=== PATIENT | female | born 1995 | race Caucasian/White ===

== ENCOUNTER 2019-04-09 10:40 | Outpatient (CLI) | payer MEDICAID, SELFPAY ==
--- NOTE | 2019-04-09 10:50 | US_ITS ---
WS: [id number] OB ultrasound, 04/09/2019 Clinical Data: LOW LYING PLACENTA W/O HEMORRHAGE Comparison: OB ultrasound, 02/02/2019 Findings: Limited examination showed there was no placenta previa. Placenta was posterior and grade one. The ce rvical length was 5.13 cm and it was closed. There is a normal amount of amniotic fluid. The he art rate was 141 bpm. US/US OB limited [id number] Impression: 1. Single intrauterine in vertex presentation. 2. Posterior placenta with no previa. 3. heart rate 141 beats per minute.
== END 2019-04-09 10:41 | disposition home or self-care (01) ==
PROVIDERS: PCP Family Medicine; Visit Provider Family Medicine
DX: O44.00 Complete placenta previa NOS or without hemorrhage, unspecified trimester (principal)
CPT/HCPCS: 76815

== ENCOUNTER 2019-05-05 10:20 | Outpatient (CLI) | payer MEDICAID, SELFPAY ==
--- NOTE | 2019-05-05 10:31 | US_ITS ---
WS: [id number] LIMITED OBSTETRICAL ULTRASOUND HISTORY: GESTATIONAL DIABETES/FOLLOW UP GROWTH CHECK COMPARISON: 04/09/2019, 02/02/2019 and 12/04/2018 Presentation: Vertex. Cervix: Closed and normal length. Placenta: Posterior, no previa or abruption. Grade: 1 HEART: FHR of 153 BPM. measurements: BPD = 8.4 cm = 33w6d HC = 30.7 cm = 34w2d AC = 30.3 cm = 34w2d FL = 6.6 cm = 34w1d Visually normal amount of amniotic fluid. EFW: 2374 g; 60 %. AGA by ultrasound: 34w1d JUHI by ultrasound: 06/15/2019 US/[place] [id number] IMPRESSION: 1. Single intrauterine gestation of 34 weeks 1 day with an EDC of 06/15/2019. A ppropriate growth since the first trimester ultrasound. 2. No macrosomia or growth asymmetry.
--- NOTE | 2019-06-01 11:38 | ANES.PREANE2 ---
Pre-Anesthetic Assessment Pre-Anesthetic Assessment: Preop Diagnosis: Term , 2 epidurals Proposed Procedure: Labor Epidural for anticipated vaginal delivery, induction for 06/07/19, induced due to epilepsy Exam: Pre-Anes Outpt Exam: alert, oriented x 3, clear to auscultation bilaterally and regular rate & rhythm Airway: Submandibular: WNL Cervical ROM: WNL MP: 1 Metabolic: Metabolic: Morbid obesity Neuropsych: Neuropsych: Seizure Comments: Epilespsy, last seizure grand mal-1y ago Anesthetic Plan: ASA status: 3 Anesthesia: Regional (specify below) Data Anesthesia Cardiac Studies: No Data to Display
== END 2019-05-05 10:21 | disposition home or self-care (01) ==
LOC: US 10:23
PROVIDERS: PCP Family Medicine; Visit Provider Family Medicine
DX: O24.419 Gestational diabetes mellitus in pregnancy, unspecified control (principal); Z3A.34 34 weeks gestation of pregnancy; Z36.9 Encounter for antenatal screening, unspecified
CPT/HCPCS: 76816

== ENCOUNTER 2019-06-01 12:17 | Outpatient (CLI) | payer MEDICAID, SELFPAY ==
--- NOTE | 2019-06-01 12:22 | US_ITS ---
WS: [id number] [place] [id number] REASON FOR EXAM: GESTATIONAL DIABETES/GROWTH CHECCK FINDINGS: Cephalic presentation. Biparietal diameter the head 9.06 cm 36 weeks 5 days gestation Head circumference 33.65 cm 38 weeks 4 days gestation. heart rate 153 bpm. Femoral lengths 7.30 cm 37 weeks 3 days gestation. Profile the fetus shows normal nose and facial features. Posterior placenta grade 2 weight 33 87 g (7 lbs. 8 oz.) this suggests a 41 week 4 day gestation. The fetus is at 37 weeks 6 days gestation due date June 16, 2019. The measurements are consistent with an 80% profile developing fetus. / [place] [id number] IMPRESSION: Interuterine at 37 weeks 6 days gestation with expected date of confi nement June 16, 2019 The fetus weighs 7 lbs. 8 oz. The fetus is 81 percentile development. In regards to pertinent curves.
== END 2019-06-01 12:18 | disposition home or self-care (01) ==
PROVIDERS: PCP Family Medicine; Visit Provider Family Medicine
DX: O24.419 Gestational diabetes mellitus in pregnancy, unspecified control (principal); Z3A.37 37 weeks gestation of pregnancy
CPT/HCPCS: 76816

== ENCOUNTER 2019-06-02 17:29 | Outpatient (CLI) | payer MEDICAID, SELFPAY ==
[2019-06-02] VITALS (7 sets, daily range): BP systolic 119–142; BP diastolic 63–82; PULSE 83–107; RESP 18; TEMP 36.7; BMI 41.1
--- NOTE | 2019-06-02 18:49 | PC.NURSE ---
Patient states she feels her contractions have decreased and are about every 10 minutes.
== END 2019-06-02 19:13 | disposition home or self-care (01) ==
LOC: OPOB 17:48 → OBGYN 19:04 → OPOB 06-03 08:35
PROVIDERS: Absent Provider Family Medicine; PCP Family Medicine; Visit Provider Family Medicine
DX: O26.899 Other specified pregnancy related conditions, unspecified trimester (principal); Z3A.00 Weeks of gestation of pregnancy not specified; R10.9 Unspecified abdominal pain
CPT/HCPCS: 59025; 99211

== ENCOUNTER 2019-06-11 19:55 | Inpatient (IN) | payer OTHER, MEDICAID, SELFPAY ==
[2019-06-11 20:26] VITALS: BP 134/83; PULSE 110
[2019-06-11 20:29] VITALS: BMI 40.7
[2019-06-11 20:56] VITALS: RESP 16; TEMP 36.6
[2019-06-11 21:10] LABS: Glucose Point of Care 146 mg/dL (70-110)
[2019-06-11 21:30] LABS: Basophils % 0.1 %; Eosinophils % 0.4 %; Hematocrit 33.9 % (37.0-47.0); Hemoglobin 11.2 g/dL (11.5-15.3); Lymphocytes # 1.8 10^3/uL (0.8-4.8); Lymphocytes % 20.2 %; Mean Corpuscular Volume 84.8 fL (81-99); Mean Platelet Volume 10.9 fL (7.4-10.4); Monocytes # 0.5 10^3/uL (0.2-0.9); Monocytes % 5.3 %; Neutrophils # 6.6 10^3/uL (1.8-7.7); Neutrophils % 73.3 %; Nucleated Red Blood Cells % 0 %; Platelet Count 243 10^3/cmm (130-400); Red Cell Distribution Width 12.8 % (12.1-15.1)
[2019-06-11 22:15] LABS: Glucose Point of Care 149 mg/dL (70-110)
[2019-06-11] MEDS: miSOPROStol 100 mcg tablet 25 MCG VAGINAL (23:46)
[2019-06-12] VITALS (144 sets, daily range): BP systolic 0–163; BP diastolic 0–93; PULSE 55–130; RESP 16; TEMP 36.6–37.2; O2SAT 91–98
[2019-06-12] MEDS: miSOPROStol 100 mcg tablet 25 MCG VAGINAL (04:30)
[2019-06-12] MEDS: ampicillin 2,000 MG in sodium chloride 0.9% (plus) 50 ML 100 MG IV (05:09)
[2019-06-12 06:52] LABS: Glucose Point of Care 94 mg/dL (70-110)
--- NOTE | 2019-06-12 08:56 | PM.OBGYHP ---
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 She presented at 38-6/7 weeks gestation last evening for cervical ripening and induction of labor secondary to epilepsy. She has not experienced any seizures during this and has been on Keppra throughout her . Her course has also been complicated by gestational diabetes which has been lifestyle controlled, group B strep carrier status a subchorionic hemorrhage earlier in her as well as obesity. Present Details : 3 Para: 2 Date of Last Menstrual Period: 09/12/18 Calculated Date of Delivery: 06/19/19 Gestational Age Based on Last Menstrual Period: 39 Dating criteria OB: LMP confirmed by 2nd trimester US care: good care Ultrasounds: normal mid trimester US and abnormal US findings Abnormal OB US findings: Subchorionic hematoma on first trimester ultrasound Obstetrical complications: gestational diabetes (Lifestyle controlled) and other (Group B strep carrier status, Rh- status, subchorionic hemorrhage first trimester, low-lying placenta (resolved)) Medical complications OB: neurological (Epilepsy) and other (Obesity) Labs Blood type OB HPI: 0 (-) negative Rubella: Immune RPR: Negative GBS: Positive HBsAG: Negative Other Lab Information: INITIAL LABS: Blood Type: O- D (Rh) Type: Negative Antibody Screen: Positive but too weak to titer (patient had received RhoGam secondary to her first trimester bleed) HCT/HBG: Initially 12.9/37.2 Pap Test: Normal Rubella: Immune VDRL: Nonreactive Urine Culture/Screen: Lactobacillus species HBsAg: Negative HIV Counseling/Testing: Negative Influenza Shot: [] Hepatitis C: Negative OPTIONAL LABS: Chlamydia: Negative GC: Negative Varicella Titer: Immune 8-18 WEEK LABS: MSAFP/Multiple Markers: Negative 24-30 WEEK LABS: HCT/HGB: 12.0 Diabetes Screen: 187 3 hour GTT (if screen abnormal): Fasting of 105, 1 hour 221, 2-hour 171, 3-hour 142 D (Rh) Antibody Screen: [] Tdap: Received in our office 32-36 WEEK LABS: Group B Strep (35-37 weeks): Positive L&D/Induction Specific History Indication for induction OB: medical complication (Epilepsy) Planned induction method: per misoprostol protocol Review of Systems Const: Denies: fever : Denies: vaginal bleeding, vaginal discharge or pelvic pain Neuro: Denies: headache or seizure-like activity Medications/Allergies Allergies Allergy/AdvReac Type Severity Reaction Status Date / Time No Known Allergies Allergy Verified 06/12/19 09:20 COUNT INCLUDES THE [facility] 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 ATTACHER Medical History (Updated 06/12/19 @ 10:18 by Jesusita Vivas MD) Anemia Anxiety Depression Seizure disorder Surgical History (Updated 06/12/19 @ 09:33 by Jesusita Vivas MD) History of open reduction and internal fixation (ORIF) procedure Left arm Family History (Updated 06/12/19 @ 09:45 by Jesusita Vivas MD) Mother Psychiatric illness Anxiety and depression Father Cancer colon Grandfather Diabetes Social History (Updated 06/12/19 @ 09:47 by Jesusita Vivas MD) Smoking and tobacco status: never smoked Second hand smoke exposure: No Alcohol intake: never Substance/Drug Use: never Caregiver/support person: Yes Lives independently: Yes Household members: spouse and children Marital status: Number of children: 2 Number of grandchildren: 0 Highest education level completed: Associate Degree: Academic Program Current occupational status: employed 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 Date GA/Weeks Outcome Route Wt Inf Gender Labor Lgth Comp. Anesthesia Location 11/30/13 39 live - full term Vaginal 7 lb Male [facility] 11/10/17 39 live - full term Vaginal 7 lb Female [facility] Delivery Date: 11/30/13 On 06/12/19 @ 09:49 Jesusita Vivas Induction of labor Delivery Date: 11/10/17 On 06/12/19 @ 09:50 Jesusita Vivas Induction of labor Other Female Reproductive History Hx Age of Menarche: 11 Duration of menses: 3-5 days Date of Last Menstrual Period: 09/12/18 Cycle Length: 28 days Menstrual flow: normal/abnormal: normal Sexual History Are you sexually active?: Yes Hx Sexually Transmitted Diseases: No Have you ever tested positive for HIV?: No Vitals/I&O/Wt Last Vital Signs Temp 98.0 F 06/12/19 07:52 Pulse 80 06/12/19 08:55 Resp 16 06/12/19 02:45 BP 139/82 06/12/19 08:55 06/11/19 06/12/19 06/12/19 22:59 06:59 14:59 Intake Total 50 / 50 Balance 50 / 50 Weight last 48 hrs Weight 245 lb Physical Exam Narrative: EXAM NARRATIVE: heart tones have a baseline in the 140s with moderate variability, accelerations and there has been a variable deceleration. Contractions are every 3 to 6 minutes and increasing in frequency and intensity. Const: COMMON NORMALS: no apparent distress, oriented x3, healthy appearing, alert and well nourished : MANUAL OB EXAM: dilated 1 cm, effaced 0%, station high and other (Vertex) Neuro: COMMON NORMALS: oriented x3, CN's II-XII intact bilaterally, moves all extremities and no focal motor deficits SENSORIUM/ORIENTATION: Yes alert Psych: COMMON NORMALS: mental status grossly normal, cooperative, affect normal and speech normal SPEECH: Yes normal speech Data : 06/11/19 20:40 A&P Assessment and plan (1) 39 weeks gestation of : Status: Acute Code(s): Z3A.39 - 39 weeks gestation of (2) Encounter for induction of labor: Last evening Cytotec was placed after an initial period of monitoring secondary to a mild tachycardia noted in the heart tones upon patient's presentation to the labor room. Patient then received a second dose of Cytotec in the senior care manager hours. She went from 1 cm dilated thick very high and posterior to now 3 cm dilated, 50% effaced and -3 station. At this point after she had had breakfast and was placed on the monitor again we will begin Pitocin per the high-dose protocol. She would like an epidural when she is able to have 1. Status: Acute Code(s): Z34.90 - Encounter for supervision of normal , unspecified, unspecified trimester (3) Epilepsy complicating : She is remained seizure-free throughout this and will continue to take her Keppra during this hospitalization. She is followed by a neurologist who recommended the 39-week induction of labor. Status: Acute Qualifiers: Trimester: unspecified trimester Qualified Code(s): O99.350 - Diseases of the nervous system complicating , unspecified trimester; G40.909 - Epilepsy, unspecified, not intractable, without status epilepticus Code(s): O99.350 - Diseases of the nervous system complicating , unspecified trimester; G40.909 - Epilepsy, unspecified, not intractable, without status epilepticus (4) Gestational diabetes mellitus (GDM) affecting : Patient's bedside blood glucose last evening was in the 140s, and this was done a few hours after she had eaten supper with some ice cream afterwards. We then checked it again a few hours later, and it was still in the 140s, actually higher by a few points than it was with the initial reading. Therefore she was given 2 units of Humalog. Her blood glucose this morning was 90s. We will monitor her blood glucose every 4 hours with a goal of having it less than 120. Status: Acute Code(s): O24.419 - Gestational diabetes mellitus in , unspecified control (5) Group B Streptococcus carrier state affecting : We have begun the group B strep protocol with a goal of having 2 doses at least 4 hours prior to delivery. Status: Acute Code(s): O99.820 - Streptococcus B carrier state complicating (6) Rh negative status during : Patient received RhoGam late in the first trimester secondary to a subchorionic hemorrhage sustained in the first trimester and then received it again at the typical 26 to 28-week paul. She had a week positive antibody screen on her first OB visit. We will check that lab again today, as it was thought to be positive secondary to her RhoGam administration late first trimester. Status: Acute Qualifiers: Trimester: unspecified trimester Qualified Code(s): O26.899 - Other specified related conditions, unspecified trimester; Z67.91 - Unspecified blood type, Rh negative Code(s): O26.899 - Other specified related conditions, unspecified trimester; Z67.91 - Unspecified blood type, Rh negative (7) Obesity affecting : She has gained approximately 20 to 25 pounds during this . Status: Acute Qualifiers: Trimester: unspecified trimester Qualified Code(s): O99.210 - Obesity complicating , unspecified trimester Code(s): O99.210 - Obesity complicating , unspecified trimester (8) Low lying placenta nos or without hemorrhage, second trimester: This was shown to be resolved during a third trimester ultrasound. Status: Resolved Code(s): O44.42 - Low lying placenta NOS or without hemorrhage, second trimester (9) Subchorionic hemorrhage in first trimester: Patient had a bleed late in her first trimester and received RhoGam. Status: Resolved Qualifiers: Fetus number: single or unspecified fetus Qualified Code(s): O41.8X10 - Other specified disorders of amniotic fluid and membranes, first trimester, not applicable or unspecified; O46.8X1 - Other antepartum hemorrhage, first trimester Code(s): O41.8X10 - Other specified disorders of amniotic fluid and membranes, first trimester, not applicable or unspecified; O46.8X1 - Other antepartum hemorrhage, first trimester Attestations Medical Necessity Statement*: As patient is being induced secondary to a medical complication she will require continued inpatient care. Coding Level of Care Code Acute Direct Support Specialist for Chg Fwd Diagnoses 39 weeks gestation of Z3A.39 Encounter for induction of labor Z34.90 Epilepsy complicating O99.350; G40.909 Trimester: unspecified trimester Gestational diabetes mellitus (GDM) affecting O24.419 Group B Streptococcus carrier state affecting O99.820 Rh negative status during O26.899; Z67.91 Trimester: unspecified trimester Obesity affecting O99.210 Trimester: unspecified trimester Low lying placenta nos or without hemorrhage, second trimester O44.42 Subchorionic hemorrhage in first trimester O41.8X10; O46.8X1 Fetus number: single or unspecified fetus
[2019-06-12] MEDS: ampicillin 1,000 MG in sodium chloride 0.9% (plus) 50 ML 100 MG IV ×3 (09:10→17:38)
[2019-06-12] MEDS: lactated ringers 1,000 ML 125 ML (09:11)
[2019-06-12] MEDS: oxytocin 30 UNIT/500 ML BAG IV (09:13)
--- NOTE | 2019-06-12 10:00 | PC.NURSE ---
Patient requesting epidural at this time.
[2019-06-12] MEDS: lactated ringers 1,000 ML 999 ML IV (10:23)
--- NOTE | 2019-06-12 11:27 | P.ANESASSM_ITS ---
Pre-Anesthetic Assessment Pre-Anesthetic Assessment: Height/Weight: Height 1.65 m Weight 111.13 kg Temp Pulse Resp BP Pulse Ox 98.3 F 84 16 133/77 98 06/12/19 10:47 06/12/19 11:25 06/12/19 02:45 06/12/19 11:25 06/12/19 11:17 Preop Diagnosis: Term , 2 epidurals Proposed Procedure: Lumbar Epidural Was Beta Riya taken within 24 hours: N/A Social: Social History: No alcohol and No tobacco Exam: Pre-Anes Outpt Exam: alert, oriented x 3 and clear to auscultation bilaterally Airway: Submandibular: WNL Cervical ROM: WNL MP: 3 Additional comments: poor History/ROS: No significant history except as noted and No significant complaints Pulmonary: Pulmonary: None reported CV/HEM: CV/HEM: None reported : : None reported Hepatic: Hepatic: None reported GI: GI: None reported Metabolic: Metabolic: DM Comments: gestational Neuropsych: Neuropsych: Seizure (hx epilepsy. Last seizure 1 yr ago. on Keppra) Anesthetic Plan: ASA status: 2 Anesthesia: Regional (specify below) (Epidural) Meds/Allergies Current Medications: Current Medications Generic Name Dose Route Start Last Admin Trade Name Freq PRN Reason Stop Dose Admin Ampicillin Sodium 1,000 mg/ 50 mls @ 100 mls/ hr 06/12/19 08:58 06/12/19 09:10 Sodium Chloride IV 100 mls/hr Q4H DAVID Administration Protocol Ampicillin Sodium 2,000 mg/ 50 mls @ 100 mls/ hr 06/12/19 05:00 06/12/19 07:00 Sodium Chloride IV Infused ONCE DAVID Infusion Protocol Ropivacaine 200 mg in 100 mls @ 6 mls/hr 06/12/19 06:00 06/12/19 11:14 Naropin Premix EPIDURAL 13 mls/hr .[id number] DAVID Administration Oxytocin 30 unit in 500 ml s @ 1 mls/hr 06/12/19 09:00 06/12/19 09:13 Pitocin IV 1 milliunit/min .Q24H DAVID 1 mls/hr Administration Protocol 1 MILLIUNIT/MIN PFSH Anesthesia PFSH: Medical History (Updated 06/12/19 @ 10:18 by Jesusita Vivas MD) Anemia Anxiety Depression Seizure disorder Surgical History (Updated 06/12/19 @ 09:33 by Jesusita Vivas MD) History of open reduction and internal fixation (ORIF) procedure Left arm Family History (Updated 06/12/19 @ 09:45 by Jesusita Vivas MD) Mother Psychiatric illness Anxiety and depression Father Cancer colon Grandfather Diabetes Social History (Updated 06/12/19 @ 09:47 by Jesusita Vivas MD) Smoking and tobacco status: never smoked Second hand smoke exposure: No Alcohol intake: never Substance/Drug Use: never Caregiver/support person: Yes Lives independently: Yes Household members: spouse and children Marital status: Number of children: 2 Number of grandchildren: 0 Highest education level completed: Associate Degree: Academic Program Current occupational status: employed 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 History of recent travel: No Sexually active: Yes Special sarabjit needs: No Female Reproductive History: Date of last menstrual period: 09/12/18 : 3 Data Anesthesia CBC & Chem 7: 06/11/19 20:40 Other Labs: Laboratory Results - last 48 hr 06/11/19 06/11/19 06/11/19 20:40 20:40 21:08 WBC 9.0 RBC 4.00 L Hgb 11.2 L Hct 33.9 L MCV 84.8 MCH 28.0 MCHC 33.0 RDW 12.8 Plt Count 243 MPV 10.9 H Neut % (Auto) 73.3 Lymph % (Auto) 20.2 [place] % (Auto) 5.3 Eos % (Auto) 0.4 Baso % (Auto) 0.1 Neut # (Auto) 6.6 Lymph # (Auto) 1.8 [place] # (Auto) 0.5 Eos # (Auto) 0.0 Baso # (Auto) 0.0 Nucleated RBC % (auto) 0 Nucleated RBCs # 0.0 POC Glucose 146 Blood Type O Negative Rho(D) Type Negaive Antibody Screen Negative 06/11/19 06/12/19 22:12 06:46 WBC RBC Hgb Hct MCV MCH MCHC RDW Plt Count MPV Neut % (Auto) Lymph % (Auto) [place] % (Auto) Eos % (Auto) Baso % (Auto) Neut # (Auto) Lymph # (Auto) [place] # (Auto) Eos # (Auto) Baso # (Auto) Nucleated RBC % (auto) Nucleated RBCs # POC Glucose 149 94 Blood Type Rho(D) Type Antibody Screen Cardiac Studies: No Data to Display Anesthesia Procedures Epidural: Time Out Performed: Yes Consents Signed: Procedure Consent Consent: from patient, risks and benefits reviewed and patient agrees to proceed Lumbar Level: L3-L4 Epidural position: sitting Epidural procedure: sterile prep of area, 1% lidocaine to numb the area (5), 18 g needle, negative for paresthesia passed, neg for paresthesia, test dose given, 1.5% xylocaine 1:200k epi (5), 0.2% Ropivacaine bolus ml (8), placed PCEA (5cc q15min x 3), no systemic response, sterile dressing applied, L.U.D. no apparent complications and 0.2% Ropiavacaine @ mls/hr (12) Additional Comments: Called to OB for epidural placement, pt evaluated and assessed for placement and explained procedure. Labs reviewed. Pt agrees to proceed. first attempt at l4-5 and blood returned in catheter. moved up 1 space and put in skin local and epidural placed to 5cm in space and tolerated well. Bolused over 7 min and VSS throughout per nursing chart. Last BP 125/79. Pain much improved.
[2019-06-12] MEDS: dextrose 5%-lactated ringers 1,000 ML 125 ML IV ×2 (12:45→19:55)
[2019-06-12 12:54] LABS: Glucose Point of Care 89 mg/dL (70-110)
[2019-06-12] MEDS: ondansetron 2 mg/ML SDV 2 mL 4 MG IVP ×2 (13:35→20:42)
[2019-06-12 13:48] LABS: Glucose Point of Care 111 mg/dL (70-110)
--- NOTE | 2019-06-12 16:09 | P.PN_ITS ---
ARCHERY EQUIPMENT REPAIRER Subjective Subjective: Interval history: Patient is comfortable with her epidural and was last checked approximately 2 hours ago and found to be 3-4 centimeters dilated, 50% effaced high and still ballotable. She has been alexei regularly. She had an episode earlier during which she said she felt nauseous and was hypotensive. Her blood sugar was 111. Her symptoms resolved and she became normotensive with maternal position shift to her left side. Labor: Pain Control: epidural Dilation (cm): 4 Effacement (%): 75 Station: -2 Amniotic Membrane Status: Ruptured Monitor Mode: External Contraction Pattern: Regular Contraction Intensity: Strong/Firm Status: Category l Vitals/I&O/Wt Last Vital Signs Temp 98.8 F 06/12/19 15:56 Pulse 85 06/12/19 16:03 Resp 16 06/12/19 02:45 BP 133/72 06/12/19 16:03 Pulse Ox 98 06/12/19 11:17 06/12/19 06/12/19 06/12/19 06:59 14:59 22:59 Intake Total 2776.451 / 2776.451 27.50 / 2803.951 Balance 2776.451 / 2776.451 27.50 / 2803.951 Weight last 48 hrs Weight 245 lb Physical Exam Urinary Catheter Management^: Roper: Cath Placed During This Visit: yes Urinary Catheter Date of Insertion: 06/12/19 Urinary Catheter Time of Insertion: 11:35 Data : 06/11/19 20:40 A&P Additional A&P Information Amniotomy was performed and resulted in a small amount of clear fluid without odor. Patient has had 3 doses of her antibiotics thus far in the group B strep protocol. Her Pitocin is at 19 milliunits/min, and she is alexei every 2 to 4 minutes and strong. Baby maintains a category 1 tracing. Attestations Medical Necessity Statement*: As patient has not yet delivered she will cont inue to need inpatient hospitalization. Coding Level of Care Code Acute Field Training Manager for Tatum Baird
[2019-06-12 17:52] LABS: Glucose Point of Care 81 mg/dL (70-110)
[2019-06-12] MEDS: miSOPROStol 200 mcg Tablet 800 MCG PR (20:20)
[2019-06-12] MEDS: methylergonovine 0.2 mg/mL INJ 1 mL IM (20:24)
--- NOTE | 2019-06-12 20:59 | PM.DELIVERY ---
 Delivery Note: Date of delivery: June 12, 2019 Pre-delivery diagnoses: 39 weeks gestation of Encounter for induction of labor, Cytotec and Pitocin Epilepsy complicating Gestational diabetes affecting Group B strep carrier state affecting Rh- status during Obesity affecting Post-delivery diagnoses: Spontaneous vaginal delivery of a viable female infant Intact perineum hemorrhage secondary to uterine atony Op report anesthesia: Epidural Delivering Physician: Dr. Vivas Estimated blood loss (mL): 1,500 Pre-Delivery Course: Patient arrived last evening at 38-6/7 weeks gestation for cervical ripening and induction of labor secondary to epilepsy. She began with Cytotec last evening and had a second dose placed in the early childhood education coordinator hours. She began at 1 cm dilated thick high and posterior and this morning after the second dose of Cytotec was 2 to 3 cm dilated, 50% effaced still high and posterior. She was not alexei very frequently and actually stated that she had not experienced very many contractions at all. She ate breakfast at that time and then at a little after 9 AM we began Pitocin. She opted for an epidural in the early afternoon, received it and became comfortable. At that time she was 3 to 4 cm dilated, 50% effaced and -3 station. She was then checked at 1600 and found to be 4 cm dilated, 75% effaced and -2 station, and at 1604 amniotomy was performed and was productive of a small amount of clear fluid without odor. By that time she had already received 3 doses of antibiotics per the group B strep protocol. She was found to be 4 to 5 cm dilated at about 1800 and then at 1948 was completely dilated and +2 station. Delivery: We began the active portion of the second stage of her labor at 2007. After 1 contractions worth of pushes she delivered a viable female at 2009. Head was straight OA. Bulb suctioning was done upon delivery of the baby's head. Nuchal cord x1 was easily manually reduced on the perineum. Bulb suctioning was then repeated upon delivery of baby's body. Baby had a strong cry. She was placed on maternal abdomen while cord was clamped by myself, cut by the father the baby and cord blood obtained. Gentle traction was placed on the placenta, and intravenous Pitocin was begun in routine doses. The placenta delivered intact at 2017 and appeared normal. Uterine exploration revealed clots which were easily manually extracted. The uterus initially felt firm and perineum and cervix were inspected and found to be intact. Just after I had removed my gown and gloves and was walking over toward the warmer to evaluate the baby, I noted a gush of blood from patient's perineal area. I quickly donned a pair of sterile gloves and performed another uterine exploration to find a large clot in the uterus and the uterus boggy, particularly the lower uterine segment. I manually extracted the clot and called for 800 mcg of Cytotec which I then gave rectally. I called for type crossmatch and hold of 4 units of blood. We then followed that with a second IV access, however, 1 of her IVs infiltrated and we were unable to resume it. However, we still had one IV line. Methergine was then given at 2023 IM, and tranexamic acid followed. 1 of the nurses was doing external fundal massage as I was doing it internally. The lower uterine segment remained somewhat boggy. At that point I called for backup, and we gave Hemabate. Her bleeding slowed tremendously, and we reverted to intermittent fundal checks which continually revealed a firm uterus. Dr. Cordon arrived, and I asked him to double check to make sure that there were no upper vaginal or cervical lacerations as I had found none prior. He agreed with the assessment of uterine atony and advised me to continue her medications. Post-Delivery Status: I estimated the blood loss of 1500 mL. Mother was responsive the entire time and had some nausea and then vomited once. She said that she felt better afterwards. She was not hypotensive nor tachycardic. Baby's Apgars were 8 at 1 minute and 9 at 5 minutes, and she weighed 7 pounds 12 ounces/3525g. A&P Assessment and plan (1) 39 weeks gestation of : Status: Acute Code(s): Z3A.39 - 39 weeks gestation of (2) Encounter for induction of labor: Status: Acute Code(s): Z34.90 - Encounter for supervision of normal , unspecified, unspecified trimester (3) Epilepsy complicating : Status: Acute Qualifiers: Trimester: unspecified trimester Qualified Code(s): O99.350 - Diseases of the nervous system complicating , unspecified trimester; G40.909 - Epilepsy, unspecified, not intractable, without status epilepticus Code(s): O99.350 - Diseases of the nervous system complicating , unspecified trimester; G40.909 - Epilepsy, unspecified, not intractable, without status epilepticus (4) Gestational diabetes mellitus (GDM) affecting : Status: Acute Code(s): O24.419 - Gestational diabetes mellitus in , unspecified control (5) Group B Streptococcus carrier state affecting : Status: Acute Code(s): O99.820 - Streptococcus B carrier state complicating (6) Rh negative status during : Status: Acute Qualifiers: Trimester: unspecified trimester Qualified Code(s): O26.899 - Other specified related conditions, unspecified trimester; Z67.91 - Unspecified blood type, Rh negative Code(s): O26.899 - Other specified related conditions, unspecified trimester; Z67.91 - Unspecified blood type, Rh negative (7) Obesity affecting : Status: Acute Qualifiers: Trimester: unspecified trimester Qualified Code(s): O99.210 - Obesity complicating , unspecified trimester Code(s): O99.210 - Obesity complicating , unspecified trimester (8) Low lying placenta nos or without hemorrhage, second trimester: Status: Resolved Code(s): O44.42 - Low lying placenta NOS or without hemorrhage, second trimester (9) Subchorionic hemorrhage in first trimester: Status: Resolved Qualifiers: Fetus number: single or unspecified fetus Qualified Code(s): O41.8X10 - Other specified disorders of amniotic fluid and membranes, first trimester, not applicable or unspecified; O46.8X1 - Other antepartum hemorrhage, first trimester Code(s): O41.8X10 - Other specified disorders of amniotic fluid and membranes, first trimester, not applicable or unspecified; O46.8X1 - Other antepartum hemorrhage, first trimester (10) Normal spontaneous vaginal delivery: Status: Acute Code(s): O80 - Encounter for full-term uncomplicated delivery (11) Intact perineum: Status: Acute (12) atony of uterus with hemorrhage: She is on her second bag of intravenous Pitocin, and we will continue with frequent fundal checks and will check her hemoglobin now and in 4 hours and then the routine 12-hour paul and as needed after that. Status: Acute Code(s): O72.1 - Other immediate hemorrhage Coding Level of Care Code Acute Cathodic Protection Technician for Chg Fwd Diagnoses 39 weeks gestation of Z3A.39 Encounter for induction of labor Z34.90 Epilepsy complicating O99.350; G40.909 Trimester: unspecified trimester Gestational diabetes mellitus (GDM) affecting O24.419 Group B Streptococcus carrier state affecting O99.820 Rh negative status during O26.899; Z67.91 Trimester: unspecified trimester Obesity affecting O99.210 Trimester: unspecified trimester Low lying placenta nos or without hemorrhage, second trimester O44.42 Subchorionic hemorrhage in first trimester O41.8X10; O46.8X1 Fetus number: single or unspecified fetus Normal spontaneous vaginal delivery O80 Intact perineum atony of uterus with hemorrhage O72.1
[2019-06-12] MEDS: levETIRAcetam 500 mg Tablet 2000 MG PO (21:34)
[2019-06-12] MEDS: HYDROcodone-acetaminophen 5-325 mg Tablet PO (22:56)
[2019-06-12 23:02] LABS: Hemoglobin 11.2 g/dL (11.5-15.3)
[2019-06-13] VITALS (8 sets, daily range): BP systolic 97–118; BP diastolic 56–79; PULSE 56–91; RESP 16–18; TEMP 36.4–36.7; O2SAT 94–100
[2019-06-13 00:19] LABS: Glucose Point of Care 92 mg/dL (70-110)
[2019-06-13 00:19] LABS: Glucose Point of Care 89 mg/dL (70-110)
[2019-06-13] MEDS: carboprost tromethamine 250 mcg/mL Amp IM (00:49)
[2019-06-13] MEDS: docusate sodium 100 mg Capsule PO ×2 (08:15→17:47)
[2019-06-13] MEDS: prenatal vitamin Capsule 1 CAP PO (08:15)
[2019-06-13] MEDS: levETIRAcetam 500 mg Tablet 2000 MG PO ×2 (08:16→20:06)
[2019-06-13] MEDS: ferrous sulfate EC 325 mg Tablet PO (08:16)
[2019-06-13 09:05] LABS: Hematocrit 28.1 % (37.0-47.0); Hemoglobin 8.9 g/dL (11.5-15.3); Mean Corpuscular HGB Conc 31.7 g/dL (30.0-36.0); Mean Corpuscular Hemoglobin 28.3 pg (28.0-34.0); Mean Corpuscular Volume 89.2 fL (81-99); Mean Platelet Volume 10.6 fL (7.4-10.4); Platelet Count 168 10^3/cmm (130-400); Red Blood Count 3.15 10^6/uL (4.1-5.3); Red Cell Distribution Width 13.2 % (12.1-15.1); White Blood Count 10.7 10^3/uL (4.0-10.0)
--- NOTE | 2019-06-13 11:56 | P.PN_ITS ---
CHECK PROCESSOR Subjective Subjective: Interval history: Patient states that she has mostly had cramping with breast-feeding, and acetaminophen has been helping. She states that her bleeding is minimal. Post /CS: Patient comments OB post-: no complaints, pain well controlled and tolerating diet baby status: doing well and nursing well [place] feeding status: exclusively breast feeding Vitals/I&O/Wt Last Vital Signs Temp 98.1 F 06/13/19 10:00 Pulse 85 06/13/19 10:00 Resp 16 06/13/19 10:00 BP 98/56 06/13/19 10:00 Pulse Ox 97 06/13/19 10:00 06/12/19 06/13/19 06/13/19 22:59 06:59 14:59 Intake Total 558.083 / 3334.534 385.417 / 3719.951 Output Total 600 / 600 1850 / 2450 900 / 900 Balance -41.917 / 2734.534 -1464.583 / 1269.951 -900 / -900 Weight last 48 hrs Weight 245 lb Physical Exam Const: COMMON NORMALS: no apparent distress, oriented x3, no limitations, healthy appearing and alert Neck/C-Spine: COMMON NORMALS: no JVD Resp: COMMON NORMALS: normal respiratory effort and clear to auscultation bilaterally AUSCULTATION: clear to auscultation bilaterally Cardio: COMMON NORMALS: no JVD, regular rate, regular rhythm, S1 normal heart sound, S2 normal heart sound, no gallops, no clicks, no murmurs, no rub and peripheral pulses 2+ throughout RATE: regular rate RHYTHM: regular rhythm HEART SOUNDS: S1 normal and S2 normal PERIPHERAL PULSES: pulses 2+ throughout : UTERUS PALPATION: Yes other OB (Fundus firm and at least 3 fingerbreadths below the umbilicus) Extremity: COMMON NORMALS: no pedal edema Neuro: COMMON NORMALS: oriented x3 SENSORIUM/ORIENTATION: Yes alert Psych: COMMON NORMALS: mental status grossly normal, thought process normal, cooperative, affect normal, speech normal and activity/motor behavior normal SPEECH: Yes normal speech THOUGHT PROCESS: normal thought process Urinary Catheter Management^: Roper: Cath Placed During This Visit: yes Reason for Continuing Indwelling Catheter: Other Urinary Catheter Date of Insertion: 06/12/19 Urinary Catheter Time of Insertion: 11:35 Data : 06/13/19 08:40 A&P Assessment and plan (1) Normal spontaneous vaginal delivery: Continue routine orders Status: Acute Code(s): O80 - Encounter for full-term uncomplicated delivery (2) Intact perineum: Status: Acute (3) atony of uterus with hemorrhage: Status: Resolved Code(s): O72.1 - Other immediate hemorrhage (4) Rh negative status during : Baby was O-, NILSA negative thus RhoGam was not needed for mother Status: Acute Qualifiers: Trimester: unspecified trimester Qualified Code(s): O26.899 - Other specified related conditions, unspecified trimester; Z67.91 - Unspecified blood type, Rh negative Code(s): O26.899 - Other specified related conditions, unspecified trimester; Z67.91 - Unspecified blood type, Rh negative (5) anemia: Continue with iron Status: Acute Code(s): O90.81 - Anemia of the puerperium Attestations Medical Necessity Statement*: As mother delivered last evening and sustained a hemorrhage which dropped her hemoglobin nearly 3 points, and she has epilepsy as well as baby is being kept overnight for observation given given mom's GBS carrier status, we will plan on discharge tomorrow morning. Time Spent in Patient Care: 16 - 35 minutes Coding Level of Care Code Acute Poultry Farm Manager for Chg Fwd Diagnoses Normal spontaneous vaginal delivery O80 Intact perineum atony of uterus with hemorrhage O72.1 Rh negative status during O26.899; Z67.91 Trimester: unspecified trimester anemia O90.81
[2019-06-13] MEDS: HYDROcodone-acetaminophen 5-325 mg Tablet PO (15:27)
--- NOTE | 2019-06-13 20:13 | PC.NURSE ---
Scheduled med given
--- NOTE | 2019-06-13 22:17 | PC.NURSE ---
Room set up for seizure precautions
[2019-06-14 04:25] VITALS: BP 106/67; PULSE 64; RESP 16; TEMP 36.5; O2SAT 96
--- NOTE | 2019-06-14 07:44 | PM.OBGYDC ---
Discharge Providers ABRASIVES SALES REPRESENTATIVE Date of Admission: 06/12/19 03:50 Date of Discharge: 06/14/19 Attending Provider at Admission: Jesusita Vivas MD Attending Provider at Discharge: Jesusita Vivas MD Primary Care Provider: Jesusita Vivas MD Diagnoses at Discharge Discharge Diagnosis (1) Normal spontaneous vaginal delivery: Status: Acute (2) Intact perineum: Status: Acute (3) atony of uterus with hemorrhage: Status: Resolved (4) Rh negative status during : Status: Acute Qualifiers: Trimester: unspecified trimester Qualified Code(s): O26.899 - Other specified related conditions, unspecified trimester; Z67.91 - Unspecified blood type, Rh negative (5) anemia: Status: Acute Reason for Visit Reason for Visit: Reason For Visit: induction Hospital Course Hospital Course: Patient arrived the evening of 06/11/2019 for cervical ripening and induction of labor. She received 2 doses of Cytotec throughout the evening of 06/10 and truck driver teamster hours of 06/11 and went from 1 cm dilated, thick posterior and high to 3 cm dilated, 50% effaced and -3 station. At that time we began Pitocin for more augmentation than anything else as baby's head was still ballotable and amniotomy was not an option at the time. Patient had also begun antibiotics per the group B strep protocol. She continued to contract and required 20 milliunits/min of the Pitocin to obtain an adequate labor pattern for dilation. She opted for an epidural, received it and became comfortable. Approximately 4:00 that afternoon we ruptured membranes which was productive of a small amount of clear fluid. 4 hours later patient delivered a viable female weighing 7 pounds 12 ounces. She sustained a hemorrhage secondary to uterine atony from which her hemoglobin went from the mid 11's to 8.9. Discharge Summary: day 1 she was feeling good with minimum bleeding or cramping except the cramping during breast-feeding. She has been afebrile and has not had any seizures. day 2 she feels even better. She is planning IUD for control . Information Peripartum Data: Delivery Method: Vaginal Laceration description: None Episiotomy description: None complications: uterine atony Physical Exam Const: COMMON NORMALS: no apparent distress, oriented x3, no limitations, healthy appearing, alert and well nourished Neck/C-Spine: COMMON NORMALS: no JVD Resp: COMMON NORMALS: normal respiratory effort and clear to auscultation bilaterally AUSCULTATION: clear to auscultation bilaterally Cardio: COMMON NORMALS: no JVD, regular rate, regular rhythm, S1 normal heart sound, S2 normal heart sound, no gallops, no clicks, no murmurs, no rub and peripheral pulses 2+ throughout RATE: regular rate RHYTHM: regular rhythm HEART SOUNDS: S1 normal and S2 normal PERIPHERAL PULSES: pulses 2+ throughout : UTERUS PALPATION: Yes other OB (Uterus firm, nontender and with fundus approximately 3 to 4 fingers breath below the umbilicus) Neuro: COMMON NORMALS: oriented x3 SENSORIUM/ORIENTATION: Yes alert Psych: COMMON NORMALS: mental status grossly normal, thought process normal, cooperative, affect normal, speech normal and activity/motor behavior normal SPEECH: Yes normal speech THOUGHT PROCESS: normal thought process Urinary Catheter Management^: Roper: Cath Placed During This Visit: yes Reason for Continuing Indwelling Catheter: Other Urinary Catheter Date of Insertion: 06/12/19 Urinary Catheter Time of Insertion: 11:35 Discharge Data Data Completed and Pending: Pending at discharge Category Date Time Status Leukocyte Reduced RBC Stat Lab 06/11/19 20:40 Results Type and Screen S tat Lab 06/12/19 06:38 Results Labs from last 24 hours 06/13/19 08:40 WBC 10.7 H RBC 3.15 L Hgb 8.9 L Hct 28.1 L MCV 89.2 MCH 28.3 MCHC 31.7 RDW 13.2 Plt Count 168 MPV 10.6 H Vitals: Last Vital Signs Temp 97.7 F 06/14/19 04:25 Pulse 64 06/14/19 04:25 Resp 16 06/14/19 04:25 BP 106/67 06/14/19 04:25 Pulse Ox 96 06/14/19 04:25 Discharge Plan Discharge Patient Disposition: Home, Self-Care Condition: Stable Prescriptions: New ferrous sulfate 325 mg (65 mg iron) Tablet,Delayed Release (Dr/Ec) 325 mg PO DAILY 14 Days Qty: 14 RF: 0 Continued PNV cmb#95-ferrous fumarate-FA [] 28 mg iron- 800 mcg Tablet 1 tab PO DAILY RF: 0 Keppra 2,000 mg PO BID RF: 0 Discharge Orders: Discharge Order (Routine); Ordered 06/14/19 Ordered By: Jesusita Vivas Referrals: Jesusita Vivas MD [Primary Care Provider] - 6 Weeks (Please make an appointment for your visit with Dr. Vivas to occur in 6 weeks at which time we will do your 2-hour fasting glucose tolerance test.) Discharge Diet: Usual diet Discharge Activity: Resume usual activity Discharge Attestations ABRASIVES SALES REPRESENTATIVE Time Spent in Discharge Care*: less than 30 min Specific Discharge Activities: Specific discharge activities: educating patient, documenting/other paperwork and evaluating patient/reviewing data Status at Discharge: Cognitive status at discharge: cognitively intact, Behavioral status at discharge: cooperative and independent in ADL's, Functional status at discharge: independent ambulation Overall status at discharge: patient is progressing back to baseline Coding Level of Care Code Acute Estate Planning Attorney for Chg Fwd Diagnoses Normal spontaneous vaginal delivery O80 Intact perineum atony of uterus with hemorrhage O72.1 Rh negative status during O26.899; Z67.91 Trimester: unspecified trimester anemia O90.81
[2019-06-14 08:50] VITALS: BP 119/79; PULSE 85; RESP 18; TEMP 36.8
[2019-06-14 09:03] VITALS: BP 119/79; PULSE 85; RESP 18; TEMP 36.8
== END 2019-06-14 08:55 | disposition home or self-care (01) | DRG 806 ==
PROVIDERS: Admitting Provider Family Medicine; PCP Family Medicine; Visit Provider Family Medicine
DX: O72.1 Other immediate postpartum hemorrhage (principal); O44.42 Low lying placenta NOS or without hemorrhage, second trimester; Z37.0 Single live birth; O24.419 Gestational diabetes mellitus in pregnancy, unspecified control; O90.81 Anemia of the puerperium; O26.899 Other specified pregnancy related conditions, unspecified trimester; Z3A.39 39 weeks gestation of pregnancy; G40.909 Epilepsy, unspecified, not intractable, without status epilepticus; O99.350 Diseases of the nervous system complicating pregnancy, unspecified trimester; O99.820 Streptococcus B carrier state complicating pregnancy; O99.214 Obesity complicating childbirth; E66.9 Obesity, unspecified; O41.8X10 Other specified disorders of amniotic fluid and membranes, first trimester, not applicable or unspecified; Z79.899 Other long term (current) drug therapy; Z67.91 Unspecified blood type, Rh negative
CPT/HCPCS: 12345; 36415; 36416; 51702; 59025; 59409; 82962; 85014; 85018; 85025; 85027; 86850; 86900; 86920; 96372; 96374; 96375; 99211; G0378; G0379; J0290; J1815; J2210; J2405; J2795

== ENCOUNTER 2021-11-06 10:26 | Emergency (ER) | payer BC, MEDICAID, SELFPAY ==
--- NOTE | 2021-11-06 10:31 | ECG_ITS ---
[facility] Test Date: 2021-11-06 Pat Name: Vonda Luna Department: Room: Gender: Female Fleecer: : 1995 Requested By: Brody Lundberg Order Number: [id number] Donita MD: Raheel Munoz M.D. Measurements Intervals [place] Rate: 77 P: 21 WA: 165 QRS: 28 QRSD: 85 T: 21 QT: 383 QTc: 434 Interpretive Statements SINUS RHYTHM WITH SINUS ARRHYTHMIA No previous ECG available for comparison Electronically Signed On 11-06-2021 18:57:01 CDT by Raheel Munoz M.D. [email or web address]
[2021-11-06 10:48] VITALS: BMI 42.4
[2021-11-06 10:50] LABS: Basophils % 0.4 %; Eosinophils # 0.1 10^3/uL (0.0-0.8); Hematocrit 42.5 % (37.0-47.0); Hemoglobin 13.8 g/dL (11.5-15.3); Lymphocytes # 3.2 10^3/uL (0.8-4.8); Lymphocytes % 30.2 %; Mean Corpuscular HGB Conc 32.5 g/dL (30.0-36.0); Mean Corpuscular Hemoglobin 27.7 pg (28.0-34.0); Mean Corpuscular Volume 85.3 fl (81-99); Mean Platelet Volume 10.3 fL (7.4-10.4); Monocytes # 0.6 10^3/uL (0.2-0.9); Monocytes % 5.7 %; Neutrophils # 6.49 10^3/uL (1.8-7.7); Neutrophils % 61.6 %; Nucleated Red Blood Cells % 0 %; Platelet Count 328 10^3/cmm (130-400); Red Blood Count 4.98 10^6/uL (4.1-5.3); Red Cell Distribution Width 12.7 % (12.1-15.1); White Blood Count 10.6 10^3/uL (4.0-10.0)
--- NOTE | 2021-11-06 10:58 | CT_ITS ---
WS: [id number] CT HEAD NONCONTRAST HISTORY: seizure TECHNIQUE: Contiguous axial imaging performed through the brain in 2.5 mm imaging. Bone and soft tiss ue windows. Sagittal and coronal reformats reviewed. All CT scans at [facility] use at least one of these dose optimization techniques: automated exposure control; mA and/or kV adjustment per pa tient size (includes targeted exams where dose is matched to clinical indication); or iterative recon struction. DLP: 987.68 mGy.cm COMPARISON: None available. No acute intracranial hemorrhage, midline shift or mass effect. No atrophy or prior infarcts or herniation. Ventricles: Normal size with no hydrocephalus. Paranasal sinuses: As visualized are clear. Mastoid air cells: Well pneumatized. Calvarium and scalp: Skull is intact with no soft tissue edema or swelling. CT/CT head wo con* [id number] IMPRESSION: Negative head CT.
[2021-11-06 11:09] LABS: Glucose Point of Care 108 mg/dL (70-110)
[2021-11-06 11:19] LABS: Alanine Aminotransferase 18 U/L (0-33); Albumin Level 4.4 g/dL (3.5-5.2); Alkaline Phosphatase 104 IU/L (35-105); Anion Gap 15.8 (5-19); Aspartate Amino Transferase 17 U/L (0-32); Blood Urea Nitrogen 13 mg/dL (6-20); Calcium 9.9 mg/dL (8.5-10.5); Carbon Dioxide 27 mmol/L (22-29); Chloride 103 mmol/L (98-107); Glomerular Filtration Rate 119.9 mL/min (90-130); Glucose 116 mg/dL (65-115); Magnesium 1.8 mg/dL (1.7-2.3); Osmolality Calculated 295 mOsm/kg (285-295); Potassium 3.8 mmol/L (3.5-5.1); Sodium 142 mmol/L (136-145); Total Bilirubin 0.2 mg/dL (0.15-1.2); Total Protein 7.4 g/dL (6.6-8.7)
--- NOTE | 2021-11-06 11:26 | ED_ITS ---
HPI - General Adult General: Chief complaint: Seizure Stated complaint: SEIZURE Time Seen by Provider: 11/06/21 10:55 History of Present Illness: Patient is a 25-year-old female with history of epilepsy on daily Keppra presenting to the emergency room with her breakthrough episode of seizure. Patient was at work when she stood up and had a second witnessed seizure episode at an hour ago. Patient reportedly hit her head according to multiple witnesses. Patient complains of frontal headache. Patient is currently back to baseline and answering all questions appropriately. Patient reports frontal headache. No other focal signs of injuries. Patient tells me that she was aware that she was about to have a seizure when this happened. Patient denies any back pain, chest pain, short of breath, palpitation, cough, runny nose sore throat, abdominal complaints, nausea/vomiting, diarrhea melena medic easier. Patient has no complaints. Patient tells me that she is compliant with her Keppra 2g daily. Onset:1 hr ago Duration:once Location:work Severity:moderate Associated symptoms: Reports headache(s); Deny chest pain, dyspnea, nausea, rash, palpitations or vomiting Review of Systems Const: Denies: fever(s) or chills Eyes: Denies: change in vision ENMT: Denies: mouth pain Card: Denies: chest pain or palpitations Resp: Denies: dyspnea or non-productive cough GI: Denies: abdominal pain, nausea, vomiting or diarrhea : Denies: dysuria Musc: Denies: extremity pain Skin/Breast: Denies: rash or new lesions Neuro: Reports: headache(s) and other (+seizure earlier); Denies: weakness in extremities Psych: Reports: other (Normal mood) Renard/Lymph: Denies: easy bruising PFS ED PFSH: Medical History Anemia Anxiety Depression Seizure disorder Surgical History History of open reduction and internal fixation (ORIF) procedure Left arm Family History Mother Psychiatric illness Anxiety and depression Father Cancer colon Grandfather Diabetes Social History Smoking and tobacco status: never smoked Second hand smoke exposure: No Alcohol intake: never Caregiver/support person: Yes Lives independently: Yes Household members: spouse and children Marital status: Number of children: 2 Number of grandchildren: 0 Highest education level completed: Associate Degree: Academic Program Current occupational status: employed 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 History of recent travel: No Sexually active: Yes Special sarabjit needs: No Female Reproductive History: Date of last menstrual period: 09/12/18 Physical Exam Const: COMMON NORMALS: alert HENMT: COMMON NORMALS: atraumatic HEAD & SCALP: atraumatic MOUTH: moist mucous membranes not abnormal Eye: COMMON NORMALS: EOMs intact bilaterally and conjunctivae normal CONJUNCTIVA: Yes conjunctivae normal Neck/C-Spine: COMMON NORMALS: full ROM and supple OTHER: No midline cervical tenderness Resp: COMMON NORMALS: normal respiratory effort and clear to auscultation bilaterally AUSCULTATION: clear to auscultation bilaterally Cardio: COMMON NORMALS: regular rate RATE: regular rate GI: COMMON NORMALS: Soft to palpation and non-tender PALPATION: Yes Soft to palpation OTHER: No focal TTP. NO guarding rebound, guarding, rigidity. No CVA tenderness to percussion. Neg Kaiser/Neg McBurney's point tenderness, no suprabupic tenderness to palpation. Extremity: COMMON NORMALS: full ROM Neuro: SENSORIUM/ORIENTATION: Yes alert MOTOR EXAM: No Abnormal motor strength present and Other motor observations present (no focal motor deficits) Psych: COMMON NORMALS: speech normal SPEECH: Yes normal speech MOOD & AFFECT: Yes euthymic mood Course Vital Signs: Vital signs: Vital Signs Pulse Rate 78 11/06/21 13:11 Respiratory Rate 14 11/06/21 13:11 Blood Pressure 106/62 11/06/21 13:11 Pulse Oximetry 99 11/06/21 13:11 MDM - General Adult Medical Decision Making [25]yo patient w/ known hx of seizure on keppra 2g BIBA after an episode of witnessed seizure which occurred 1 hour ago. Back to baseline on arrival, AAOX3 with non-focal neuro exam. HDS. Exam revealed no focal trauma/deformity/bruises. The episode of seizure was witnessed and patient fell forward. No immunosuppression hx and without preceding fever. No history of alcohol abuse or suspicion for toxin ingestion. Hx of prior seizure likely breakthrough seizure in the setting of medication change/non-compliance. H No lips/tongue lacerations. No visible bowel/bladder incontinence Airway protected. No drooling. Sats > 95%. Unlikely to be stroke, neurogenic syncope, acute delirium, intracranial tumor/mass, intracranial bleed, SAH/subdural hematoma/epidural hematoma, meningitis, or intracranial abscess, or from alcohol withdrawal. Workup: CBC, BMP, Magnesium, EKG, CT brain ED Interventions: 2g of keppra, PO challenge, serial reassessment EKG: No e/o STEMI. No evidence of Brugada?s sign, delta wave, epsilon wave, significantly prolonged QTc, or malignant arrhythmia. Lab findings: Electrolytes including K and Mg wnl. [12:30pm] On reassessment, patient back to baseline. In the ED, the patient received 2g of keppra in the ED. CT head negative for any acute findings. No other witnessed episodes of seizure while the patient was observed in the ED. Repeat neuro exam is non-focal. Patient takes keppra 4g for his seizures and this is the maximal dose the patient should be on. Patient is currently in the process of adjusting her medications with her doctor in [facility]. We attempted to reach the patient's doctor's office however was unsuccessful. At this point, decision was made was made to start patient on Topamax 25 mg daily for breakthrough seizure. patient tolerated PO in the ED and was able to ambulate without difficulties. Unlikely to be alternative causes of seizures since the patient has no hx of immunosuppression, no recent fevers, no recent abx/CARBONIZER TESTER shunt, no recent toxic exposure, no unilateral or focal weakness, or trauma. Topamax 25mg daily for breakthrough seizures Disposition: Discharge. Patient is given instruction for follow-up with PCP and Neurology in the next 24-48 hours. Given seizure precautions including no driving, swimming, or bathing until the patient is fully evaluated by specialists. Lab Data : 11/06/21 10:40 11/06/21 10:[address] 11/06/21 10:58 IMPRESSION: Negative head CT. Laboratory Results WBC 10.6 10^3/uL (4.0-10.0) H 11/06/21 10:40 RBC 4.98 10^6/uL (4.1-5.3) 11/06/21 10:40 Hgb 13.8 g/dL (11.5-15.3) 11/06/21 10:40 Hct 42.5 % (37.0-47.0) 11/06/21 10:40 MCV 85.3 fl (81-99) 11/06/21 10:40 MCH 27.7 pg (28.0-34.0) L 11/06/21 10:40 MCHC 32.5 g/dL (30.0-36.0) 11/06/21 10:40 RDW 12.7 % (12.1-15.1) 11/06/21 10:40 Plt Count 328 10^3/cmm (130-400) 11/06/21 10:40 MPV 10.3 fL (7.4-10.4) 11/06/21 10:40 Neut % (Auto) 61.6 % 11/06/21 10:40 Lymph % (Auto) 30.2 % 11/06/21 10:40 [place] % (Auto) 5.7 % 11/06/21 10:40 Eos % (Auto) 1.0 % 11/06/21 10:40 Baso % (Auto) 0.4 % 11/06/21 10:40 Neut # (Auto) 6.49 10^3/uL (1.8-7.7) 11/06/21 10:40 Lymph # (Auto) 3.2 10^3/uL (0.8-4.8) 11/06/21 10:40 [place] # (Auto) 0.6 10^3/uL (0.2-0.9) 11/06/21 10:40 Eos # (Auto) 0.1 10^3/uL (0.0-0.8) 11/06/21 10:40 Baso # (Auto) 0.0 10^3/uL (0.0-0.1) 11/06/21 10:40 Nucleated RBC % (auto) 0 % 11/06/21 10:40 Nucleated RBCs # 0.0 /100WBC 11/06/21 10:40 Sodium 142 mmol/L (136-145) 11/06/21 10:40 Potassium 3.8 mmol/L (3.5-5.1) 11/06/21 10:40 Chloride 103 mmol/L (98-107) 11/06/21 10:40 Carbon Dioxide 27 mmol/L (22-29) 11/06/21 10:40 Anion Gap 15.8 (5-19) 11/06/21 10:40 BUN 13 mg/dL (6-20) 11/06/21 10:40 Creatinine 0.6 mg/dL (0.5-0.9) 11/06/21 10:40 GFR Calculation 119.9 mL/min (90-130) 11/06/21 10:40 Glucose 116 mg/dL (65-115) H 11/06/21 10:40 POC Glucose 108 mg/dL (70-110) 11/06/21 11:06 Calculated Osmolality 295 mOsm/kg (285-295) 11/06/21 10:40 Calcium 9.9 mg/dL (8.5-10.5) 11/06/21 10:40 Magnesium 1.8 mg/dL (1.7-2.3) 11/06/21 10:40 Total Bilirubin 0.2 mg/dL (0.15-1.2) 11/06/21 10:40 AST 17 U/L (0-32) 11/06/21 10:40 ALT 18 U/L (0-33) 11/06/21 10:40 Alkaline Phosphatase 104 IU/L (35-105) 11/06/21 10:40 Total Protein 7.4 g/dL (6.6-8.7) 11/06/21 10:40 Albumin 4.4 g/dL (3.5-5.2) 11/06/21 10:40 Globulin 3.0 g/dL (1.3-4.6) 11/06/21 10:40 HCG, Qual Negative (Negative) 11/06/21 10:40 Urine Color Yellow (Yellow) 11/06/21 12:45 Urine Appearance Hazy (CLEAR) A 11/06/21 12:45 Urine pH 6.5 (5-7) 11/06/21 12:45 Ur Specific [place] 1.010 (1.005-1.030) 11/06/21 12:45 Urine Protein Trace (Negative) 11/06/21 12:45 Urine Glucose (UA) Norm (Normal) 11/06/21 12:45 Urine Ketones Negative (Negative) 11/06/21 12:45 Urine Blood 3+ (Negative) H 11/06/21 12:45 Urine Nitrate Positive (Negative) H 11/06/21 12:45 Urine Bilirubin Neg (Negative) 11/06/21 12:45 Urine Urobilinogen Norm mg/dL (Negative) 11/06/21 12:45 Ur Leukocyte Esterase 1+ (Negative) H 11/06/21 12:45 Urine RBC 0-4 /hpf (0-2) H 11/06/21 12:45 Urine WBC 5-10 /hpf (0-5) H 11/06/21 12:45 Ur Squamous Epith Cells 0-4 /hpf (0-5) H 11/06/21 12:45 Amorphous Sediment Not Reportable 11/06/21 12:45 Urine Bacteria 3+ /hpf (NONE) H 11/06/21 12:45 Imaging Data Other Imaging: Radiologist's impression: [facility] [address] [address] Scan Report Signed Patient: Vonda Luna Unit #: [id number] : 1995 Age/Sex: 25 / F ADM Date: 11/06/21 Loc: ER Room/Bed: Attending Dr: Ordering Provider/Ordering MD: Jonh Maldonado MD Date of Service: 11/06/21 Procedure(s): CT head wo con* [id number] Accession Number(s): [id number] Report Number: [id number] WS: [id number] CT HEAD NONCONTRAST HISTORY: seizure TECHNIQUE: Contiguous axial imaging performed through the brain in 2.5 mm imaging. Bone and soft tissue windows. Sagittal and coronal reformats reviewed.? [facility] at [facility] one of these dose optimization techniques: automated exposure control; mA and/or kV adjustment per patient size (includes targeted exams where dose is matched to clinical indication); or iterative reconstruction. DLP: 987.68 mGy.cm COMPARISON: None available. No acute intracranial hemorrhage, midline shift or mass effect. No atrophy or prior infarcts or herniation. Ventricles:? Normal size with no hydrocephalus. Paranasal sinuses: As visualized are clear. Mastoid air cells: Well pneumatized. Calvarium and scalp: Skull is intact with no soft tissue edema or swelling. CT/CT head wo con* [id number] IMPRESSION: ? Negative head CT. ? Dictated By: Shell Burkett DO Signed By: Shell Burkett DO Signed Date/Time: 11/06/21 1226 DD/ 1213 Discharge Plan Discharge Patient Disposition: Home Clinical Impression: Seizure Condition: Stable Prescriptions: New Topamax 25 mg tablet 25 mg PO DAILY 10 Days Qty: 10 0RF No Action PNV cmb#95-ferrous fumarate-FA [] 28 mg iron- 800 mcg Tablet 1 tab PO DAILY Keppra 2,000 mg PO BID Discharge Orders: Discharge ED (Routine); Ordered 11/06/21 Ordered By: Jonh Maldonado Referrals: Jesusita Vivas MD [Primary Care Provider] - Discharge Diet: Advance as tolerated Discharge Activity: Increase activity as tolerated Patient Instructions: Epilepsy (ED) Activity Restrictions/Additional Instructions: Please come back to the emergency room for any more breakthrough episodes of seizure. Come back if any weakness in her arms, drooling, difficulty speaking, any neurological symptoms. Please do not swim bathe or drive a vehicle unattended. Coding Level of Care Code ED Field Representative/Health Education for Chg Fwd Exam Comprehensive
[2021-11-06] MEDS: acetaminophen 500 mg Tablet 1000 MG PO (12:06)
--- NOTE | 2021-11-06 12:14 | PC.NURSE ---
Pt has history of seizures, said she was at work when she had a seizure and fell to the ground hitting her head on the floor she thinks but is unsure. EMS brought pt in with a c collar on, Dr. MCLEOD removed the collar. Pt did not c/o of any neck pain.
[2021-11-06 12:20] LABS: HCG, Serum Qual Negative (Negative)
[2021-11-06 13:11] VITALS: BP 106/62; PULSE 78; RESP 14; O2SAT 99
[2021-11-06 13:15] LABS: Bilirubin Urine Neg (Negative); Blood Urine 3+ (Negative); Glucose Urine UA Norm (Normal); Ketones Urine Negative (Negative); Nitrate Urine Positive (Negative); Protein Urine Trace (Negative); Urine Appearance Hazy (CLEAR); Urine Color Yellow (Yellow); pH Urine 6.5 (5-7)
[2021-11-06 13:16] LABS: Add Urine Culture? Yes; Add Urine Microscopic? YES; Bacteria Urine 3+ /hpf; Leukocyte Esterase Urine 1+ (Negative); RBC Urine 0-4 /hpf (0-2); Squamous Epithelial Cell Urine 0-4 /hpf (0-5); Urobilinogen Urine Norm (Negative)
== END 2021-11-06 13:13 | disposition home or self-care (01) ==
PROVIDERS: Family Medicine; Emergency Provider Emergency Medicine; PCP Family Medicine
DX: R56.9 Unspecified convulsions (principal)
CPT/HCPCS: 36416; 70450; 80053; 81001; 82962; 83735; 84703; 85025; 87077; 87086; 87186; 93005; 96365; 96367; 99285; J1953

== ENCOUNTER → 2025-01-26 11:22 | Outpatient (BNVA) | payer BC, SELFPAY | PROVIDERS: Visit Provider Nurse Practitioner | DX: M25.511 Pain in right shoulder (principal) | CPT/HCPCS: 73030 ==

== ENCOUNTER 2025-02-01 10:17 | Outpatient (CLI) | payer BC, SELFPAY ==
--- NOTE | 2025-02-01 10:27 | XR_ITS ---
WS: [id number] Cervical spine, 5 views including both obliques, 02/01/2025 Clinical Data: NECK PAIN Comparison: None. Findings: No compression fractures are seen. The disc heights are normal. There is no prevertebral soft tissue swelling. The odontoid is unremarkable. The soft tissues of the neck and the lung apices are normal. The oblique views show no foraminal encroachment. XR/XR cervical spine 4-5V [id number] Impression: 1.Negative cervical spine. 2. Negative obliques
== END 2025-02-01 10:18 | disposition home or self-care (01) ==
PROVIDERS: PCP Family Medicine; Visit Provider Family Medicine
DX: M54.2 Cervicalgia (principal)
CPT/HCPCS: 72050

== ENCOUNTER 2025-02-09 12:10 | Emergency (ER) | payer BC, SELFPAY ==
[2025-02-09 12:13] VITALS: BP 137/92; PULSE 103; RESP 18; TEMP 36.8; O2SAT 100
--- NOTE | 2025-02-09 12:14 | XR_ITS ---
WS: [id number] Exam: XR shoulder RT min 2V* [id number] Date/Time of Exam: 02/09/2025 12:19 PM Reason For Exam: pain DLP: Comparison 01/26/2025. No fracture. The joints are maintained. Normal soft tissues. XR/XR shoulder RT min 2V* [id number] IMPRESSION: 1. Negative RIGHT shoulder.
--- OUTSIDE RECORDS SUMMARY | 2025-02-09 12:18 | XMS_ITS | Clinical Summary ---
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 30 Tablet 09/15/2019 Active Active Problems Patient Care Coordination No te Formatting of this note migh t be different from the original. 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 Family History Medical History Relation Name Comments Cancer Father Cancer Maternal Grandfather Diabetes Maternal Grandmother Migraines Paternal Aunt Seizures Sister Relation Name Status Comments Father Maternal Grandfather Maternal Grandmother Paternal Aunt Sister Social History Tobacco Use Types Packs/Day Years Used Date Smoking Tobacco: Never Smokeless Tobacco: Never Tobacco Cessation:Counseling Given: No Alcohol Use Standard Drinks/Week Comments No 0 (1 standard drink = 0.6 oz pur e alcohol) Comments No Sex and Gender Information Value Date Recorded Sex Assigned at Not on file Legal Sex Female 4:50 PM CDT Gender Identity Not on file Sexual Orientation Not on file Last Filed Vital Signs Vital Sign Reading Time Taken Comments Blood Pressure 122/86 09/15/2019 12:52 PM CDT Pulse 90 09/15/2019 12:52 PM CDT Temperature - - Respiratory Rate - - Oxygen Saturation 96% 09/15/2019 12:52 PM CDT Inhaled Oxygen Concentration - - Weight 103.9 kg (229 lb) 09/15/2019 12:52 PM CDT Height 165.1 cm (5' 5 ) 09/15/2019 12:52 PM CDT Body Mass Index 38.11 09/15/2019 12:52 PM CDT Plan of Treatment Health Maintenance Due Date Last Done Comments DTAP/TDAP/TD VACCINES (1 - Tdap) 2012 HEPATITIS B VACCINES (1 of 3 - 19+ 3-dose series) 12/01 HPV/Cotest (21-29) 2014 HPV VACCINES (1 - 3-dose SCDM series) 2020 CERVICAL CANCER SCREENING 12/29/2023 HPV/Cotest (30-65) 12/29/2023 PAP SMEAR 12/29/2023 INFLUENZA VACCINE (#1) 2024
--- NOTE | 2025-02-09 12:19 | W.ED.EXTPRO ---
HPI - Extremity Problem General: Chief complaint: Extremity Injury, Upper Stated complaint: R shoulder popped arm and fingers numb Pain Time Seen by Provider: 02/09/25 12:19 History of Present Illness: 29-year-old female with a history of seizure disorder, depression and anxiety who presents to the emergency room with right arm numbness. She had been having pain in her right shoulder. This started after she had a seizure a couple weeks ago. She had seen her primary care and had x-rays done and continued to have pain until today when she felt a pop and now she has decreased sensation down her entire right arm. Related Data Home Medications ?Medication ?Instructions ?Recorded ?Confirmed cyclobenzaprine 5 mg tablet 5 mg PO TID PRN Pain 02/09/25 02/09/25 levetiracetam 1,000 mg tablet 2,000 mg PO BID 02/09/25 02/09/25 topiramate 100 mg tablet 100 mg PO BID 02/09/25 02/09/25 Previous Rx's ?Medication ?Instructions ?Recorded prednisone 20 mg tablet 60 mg (3 x 20 mg) PO DAILY #20 tabs 02/09/25 Allergies Allergy/AdvReac Type Severity Reaction Status Date / Time No Known Allergies Allergy Verified 01/26/25 11:17 Review of Systems Narrative: Constitutional symptoms: Negative except as documented in HPI. Skin symptoms: Negative except as documented in HPI. Eye symptoms: Negative except as documented in HPI. ENMT symptoms: Negative except as documented in HPI. Respiratory symptoms: Negative except as documented in HPI. Cardiovascular symptoms: Negative except as documented in HPI. Gastrointestinal symptoms: Negative except as documented in HPI. Genitourinary symptoms: Negative except as documented in HPI. Musculoskeletal symptoms: Negative except as documented in HPI. Neurologic symptoms: Negative except as documented in HPI. Psychiatric symptoms: Negative except as documented in HPI. Endocrine symptoms: Negative except as documented in HPI. [facility] ED PFSH: Medical History (Updated 02/09/25 @ 13:00 by Lizeth Ortiz MD) Seizure disorder Depression Anxiety Anemia Surgical History History of open reduction and internal fixation (ORIF) procedure Left arm Family History Mother Psychiatric illness Anxiety and depression Father Cancer colon Grandfather Diabetes Social History Smoking and tobacco/nicotine status: never used tobacco/nicotine Second hand smoke exposure: No Alcohol intake: never Substance/Drug Use: never Caregiver/support person: Yes Lives independently: Yes Household members: spouse and children Marital status: Number of children: 2 Number of grandchildren: 0 Highest education level completed: Associate Degree: Academic Program Current occupational status: employed 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 Skin: warm and dry Head: Normocephalic Neck: Trachea midline Eye: Extraocular movements are intact. Ears, nose, mouth and throat: Oral mucosa moist Respiratory: Respirations are non-labored Musculoskeletal: Normal ROM. Patient reports decrease sensation down her right arm Gastrointestinal: Abdomen does not appear distended Neurological: Alert and oriented, No focal neurological deficit observed. Patient reports paresthesia down her arm. Says it feels numb. She has no motor deficits. Psychiatric: Cooperative, appropriate mood & affect. Course Vital Signs: Vital signs: Vital Signs Temperature 98.3 F 02/09/25 12:13 Pulse Rate 98 02/09/25 13:08 Respiratory Rate 17 02/09/25 13:08 Blood Pressure 132/86 02/09/25 13:08 Pulse Oximetry 97 02/09/25 13:08 Oxygen Delivery Me thod Room Air 02/09/25 12:13 MDM - Extremity (Nontraumatic) Medical Decision Making Medical decision making Patient's reason for coming to the emergency room: Social determinants: Employed. . and kids are present in the room I reviewed the patient's medical record. History of seizures, anxiety and depression. Was seen by her primary for this issue recently. I reviewed the patient's current home meds Patient is on Keppra and Topamax Alternate historians: None Differential diagnosis: including but not limited to and based on the above HPI, review of systems and physical exam: Initial concern would be for any sorts of fractures so an x-ray was ordered for this. Beyond that with the neurologic symptoms difficult to determine. I have consulted both Ortho and neurology as below. Orders placed to evaluate differential diagnosis based on the above differential, HPI and physical exam X-ray of the shoulder: Nothing acute. This was reviewed and interpreted by myself the emergency room physician. I also reviewed the radiology report. Assessment of risk: Level of risk: Moderate risk patient. History of seizures. Consultation: I spoke with Dr. Shelton and she feels the neurologic symptoms should not be related to the surgery. I do feel that perhaps of 2 separate processes. That the shoulder is a rotator cuff injury as she still does have limited range of motion. In the neurologic symptoms are some sort of paresthesia Consultation: I spoke with Dr. Velarde who recommends the patient get a nerve study and follow-up with her neurologist to soon as possible. Also agrees with placing patient on steroids Reexamination: Patient remained stable. No increased work of breathing. No altered mental status. No focal motor deficits. No change in exam. She says she does not have sensation all the way around her arm from above her shoulder joint and the deltoid down to her fingertips. She does have full range of motion at the elbow and the fingers and hand and wrist Assessment and plan: Paresthesia Rotator cuff injury - Discharged home - Discussed plan with patient. Answered any questions. - Evaluation and treatment of this problem were appropriate in the emergency setting. Lab Data Radiology Impressions Shoulder X-Ray 02/09/25 12:14 IMPRESSION: 1. Negative RIGHT shoulder. All radiology interpretation(s) finalized by discharge Discharge Plan Discharge Patient Disposition: Home Clinical Impression: Paresthesia of right arm, Injury of right rotator cuff Condition: Stable Prescriptions: New prednisone 20 mg tablet 60 mg PO DAILY Qty: 20 0RF Rx Instructions: 3 tabs (60 mg) x 3 days. 2 tabs (40 mg) x 3 days. 1 tab (20 mg) x 3 days. 1/2 tab (10 mg) x 4 days No Action topiramate 100 mg tablet 100 mg PO BID cyclobenzaprine 5 mg tablet 5 mg PO TID PRN (Reason: Pain) levetiracetam 1,000 mg tablet 2,000 mg PO BID Discharge Orders: Discharge ED (Routine); Ordered 02/09/25 Ordered By: Lizeth Ortiz Referrals: Thea Toledo DO [Primary Care Provider, ONCOLOGY ACCOUNT SPECIALIST] Vani Varner MD [Physician, Orthopedics] - 7-10 days Referral Note: Please follow-up with your primary provider or with orthopedics for your rotator cuff injury. He also should follow-up with your neurologist to soon as possible concerning the paresthesia of your arm Discharge Activity: Increase activity as tolerated Patient Instructions: Rotator Cuff Injury Exercises (DC), Opioid Safety, Pain Management, Patient Portal & [facility] Instructions Activity Restrictions/Additional Instructions: Please follow-up with your primary provider or with orthopedics for your rotator cuff injury. He also should follow-up with your neurologist to soon as possible concerning the paresthesia of your arm Thank you for choosing [facility] for your healthcare needs today. You have been screened and evaluated and felt safe for discharge. Health conditions do change or evolve sometimes and as such it is important that you follow up with your Primary Doctor to be re checked, 3-5 days is a general good time frame for follow up. You are always welcome to return to the ED for re assessment if your symptoms are worsening or you have new concerns Print Language: Yoruba Coding Level of Care Code ED Three Dimensional Art Instructor for Tatum Baird
[2025-02-09 13:08] VITALS: BP 132/86; PULSE 98; RESP 17; O2SAT 97
== END 2025-02-09 13:09 | disposition home or self-care (01) ==
PROVIDERS: Emergency Provider Emergency Medicine; PCP Family Medicine
DX: R20.2 Paresthesia of skin (principal); S46.001A Unspecified injury of muscle(s) and tendon(s) of the rotator cuff of right shoulder, initial encounter; X58.XXXA Exposure to other specified factors, initial encounter
CPT/HCPCS: 73030; 99283

== ENCOUNTER 2025-03-03 15:53 | Outpatient (CLI) | payer BC, SELFPAY ==
--- NOTE | 2025-03-03 16:04 | MR_ITS ---
WS: [id number] MRI RIGHT SHOULDER HISTORY: Right shoulder pain COMPARISON: Radiograph 02/09/2025 TECHNIQUE: Multiplanar sequences of the shoulder joint are submitted. Minimal AC joint arthritis. There is a small osteophyte from the distal inferior clavicle without significant encroachment upon the myotendinous portion of the supraspinatus. No downsloping of the acromion. No os acromion. Normal biceps tendon. There is a small amount of fluid in the biceps tendon sheath. Small amount of increased T2 T2 signal and edema in the rotator cuff interval. Normal position of the humeral head in the glenoid. No edema or atrophy of the rotator cuff muscles. No tendon tear is identified. There is a very small amount of increased fluid signal near the insertion site of the infraspinatus tendon. There is a small joint effusion. Fluid within the axillary pouch contains intra- articular bodies. No labral tear identified. MR/MR shoulder RT wo con* [id number] IMPRESSION: 1. No rotator cuff tendon tear, edema or atrophy is identified. 2. There is a very small amount of increased signal in the distal infraspinatu s tendon at the insertion site. This may represent a very subtle tear. 3. Increased fluid in the biceps tendon sheath but the tendon itself appears i ntact. 4. Small joint effusion with intra-articular bodies. 5. Increased signal in the rotator cuff interval. No tendon or ligament abnorm ality noted in the rotator cuff interval.
== END 2025-03-03 15:54 | disposition home or self-care (01) ==
LOC: RAD 15:54
PROVIDERS: PCP Family Medicine; Visit Provider Family Medicine
DX: M25.511 Pain in right shoulder (principal); M25.411 Effusion, right shoulder
CPT/HCPCS: 73221